=== PATIENT | male | born 1990 | race Caucasian/White ===

== ENCOUNTER 2023-11-18 11:43 | Emergency (ER) | payer SELFPAY ==
[~2023-11-18] VITALS: Ht 160 cm; Wt 108.9 kg
[2023-11-18] MEDS ORDERED: Lidocaine 2% Viscous Soln 15 ML UDC PO ONE (12:50)
[2023-11-18] MEDS ORDERED: Mag Hydrox/AL Hydrox/Simeth 30 ML UDC PO ONE (12:50)
[2023-11-18] MEDS ORDERED: Atropine/Scopalam/Hyoscam/PB 5 ML UDC PO ONE (12:50)
[2023-11-18] MEDS ORDERED: Mag Hydrox/Al Hydrox/Simeth 18 ML,Lidocaine 2% Viscous Soln 9 ML,Atropine/Scopalam/Hyos... PO ONE (13:15)
[2023-11-18] MEDS ORDERED: PANT40 PO (14:03)
== END 2023-11-18 14:53 | disposition home or self-care (01) ==
LOC: ER 11:43
DX: K20.90 Esophagitis, unspecified without bleeding (principal)
CPT/HCPCS: 71045; 93005; 93010; 99283-25; A9270